=== PATIENT | female | born 1980 | race Caucasian/White ===

== ENCOUNTER → 2016-08-26 | Outpatient (CLI) | payer BC ==
[~2016-08-26] MED LIST: ACET1TAB43 PO; BUTA1TAB9; CATHETER FLUSH 10 ML SYR IV PRN; CEPH-507 PO; CRUT1EAC7 MC; CYCL10TA9; HYDR-3812 PO; IBP800T PO; IOHEXOL 350 MG/ML 100 ML (OMNIPAQUE 350) VIAL IV ONE; LEG1EACH50 MC; NS 100 ML (IVPB) BAG IV ONE; ONDAN4ODT PO; PREN1TAB39 PO; TPR25T PO; TRAM50TA2 PO
--- OUTSIDE RECORDS SUMMARY | 2016-08-26 13:15 | XMS REPORT | Continuity of Care Document ---
Author Author [facility] Organization [facility] Address Unknown Phone Unavailable Allergies Active Description Code Type Severity Reaction Onset Reported/Identified Relationship to Patient Clinical Status Yes NKANo Known Allergies NKA Miscellaneous Allergy Unknown N/ A 02/06/2006 Medications Problems Date Dx Coded Attending Type Code Diagnosis Diagnosed By 07/29/2011 Ot 784.0 12/20/2013 ZI LYONS, YOBANI Erazo Ot 891.0 12/20/2013 ZI LYONS, YOBANI Erazo Ot E920.8 06/22/2015 CURLY LYONS, GLORIA White Ot R59.1 06/23/2015 CURLY LYONS, GLORIA White Ot R59.1 06/23/2015 CURLY LYONS, GLORIA White Ot R59.1 06/23/2015 CURLY LYONS, GLORIA White Ot R59.1 06/25/2015 CURLY LYONS, GLORIA White Ot R59.1 07/13/2015 CURLY LYONS, GLORIA White Ot R59.1 09/12/2015 CURLY LYONS, GLORIA White Ot R59.1 09/12/2015 JOSE GARCIA Ot S81.012A LACERATION WITHOUT FOREIGN BODY, LEFT KN 09/12/2015 JOSE GARCIA Ot W22.8XXA STRIKING AGAINST OR STRUCK BY OTHER OBJE 09/12/2015 JOSE GARCIA Ot Y92.[address] IN [facility] NON-INSTITUT ( PRIVATE 09/12/2015 JOSE GARCIA Ot Y99.8 OTHER EXTERNAL CAUSE STATUS 09/16/2015 CURLY LYONS, GLORIA White Ot R59.1 09/16/2015 CURLY LYONS, GLORIA White Ot R59.1 09/25/2015 ODALYS URIBE MD Ot S81.012D LACERATION WITHOUT FOREIGN BODY, LEFT KN 09/25/2015 CURLY LYONS, GLORIA White Ot R59.1 09/25/2015 CURLY LYONS, GLORIA White Ot R59.1 09/25/2015 RONY LYONS, ODALYS Hinson Ot S81.012D 10/18/2015 ZI LYONS, YOBANI Erazo Ot F17.210 NICOTINE DEPENDENCE, CIGARETTES, UNCOMPL 10/18/2015 ZI LYONS, YOBANI Erazo Ot G43.909 MIGRAINE, UNSP, NOT INTRACTABLE, WITHOUT 10/18/2015 CURLY LYONS, GLORIA White Ot R59.1 10/20/2015 YOBANI PINON MD Ot F17.210 10/20/2015 YOBANI PINON MD Ot G43.909 10/24/2015 CURLY LYONS, GLORIA White Ot R59.1 GENERALIZED ENLARGED LYMPH NODES 10/24/2015 CURLY LYONS, GLORIA White Ot R59.1 GENERALIZED ENLARGED LYMPH NODES 11/11/2015 CURLY LYONS, GLORIA White Ot R59.1 GENERALIZED ENLARGED LYMPH NODES Procedures Results Encounters ACCT No. Visit Date/Time Discharge Status Pt. Type Provider Facility Loc./Unit Complaint [id number] 10/18/2015 03:46:00 2015 04:54:00 DIS Emergency YOBANI PINON MD [facility] ER [id number] 09/25/2015 10:25:00 2015 10:47:00 DIS Emergency RONY LYONS, ODALYS Hinson [facility] ER [id number] 09/12/2015 13:43:00 2015 15:39:00 DIS Emergency JOSE GARCIA [facility] ER [id number] 06/08/2015 16:20:00 2014 23:59:59 CLS Outpatient GLORIA RAWLS MD [facility] RAD [id number] 12/20/2013 20:01:00 2013 20:14:00 DIS Emergency YOBANI PINON MD [facility] ER [id number] 07/29/2011 20:39:00 Document Registration
[2016-08-26 14:00] LABS: BASOPHILS % (AUTO) 1 % (0-10); EOSINOPHILS # (AUTO) 0.2 10^3/uL (0.0-0.3); EOSINOPHILS % (AUTO) 4 % (0-10); LYMPHOCYTES # (AUTO) 1.3 X 10^3 (1.0-4.0); LYMPHOCYTES % (AUTO) 25 % (12-44); MEAN CORPUSCULAR HEMOGLOBIN 33 PG (25-34); MEAN CORPUSCULAR HGB CONC 35 G/DL (32-36); MEAN CORPUSCULAR VOLUME 92 FL (80-99); MEAN PLATELET VOLUME 8.3 FL (7.4-10.4); MONOCYTES # (AUTO) 0.6 X 10^3 (0.0-1.0); MONOCYTES % (AUTO) 12 % (0-12); NEUTROPHILS % (AUTO) 59 % (42-75); PLATELET COUNT 290 10^3/uL (130-400); RED BLOOD COUNT 4.15 10^6/uL (4.35-5.85); RED CELL DISTRIBUTION WIDTH 12.3 % (10.0-14.5); WHITE BLOOD COUNT 5.1 10^3/uL (4.3-11.0)
--- NOTE | 2016-08-26 14:06 | Diagnostic Imaging Report ---
INDICATION: Cough, sinus drainage. FINDINGS: The lungs are well aerated and clear. The heart is not enlarged. There is no hilar adenopathy. No pulmonary edema. No pneumothorax or pleural effusions. No bony abnormalities. IMPRESSION: Normal PA and lateral chest. Report was stat faxed to office of ALEKSANDAR Jiménez, @ 2:01 PM/pawan. Dictated by: Dictated on workstation # [id number]
--- NOTE | 2016-08-26 14:51 | Diagnostic Imaging Report ---
CLINICAL INDICATION: Failure of antibiotics. Patient has sinus pressure and congestion since June 2016. EXAM: Axial maxillofacial CT scan performed without and with 80 cc of nonionic IV contrast with coronal reformations. COMPARISON: None. FINDINGS: There is no abnormal IV contrast enhancement seen on this exam. PARANASAL SINUSES: All of the paranasal sinuses findings have progressed compared to the prior study. FRONTAL: Unremarkable. ETHMOID: Mild mucosal thickening. MAXILLARY: There is a small air-fluid level in the right maxillary sinus and mild peripheral mucosal thickening. The left maxillary sinus is clear. SPHENOID: There is mild mucosal thickening involving the anterior aspect of the sphenoid sinus. OTHER PARANASAL SINUS FINDINGS: None. NASAL SEPTUM: Relatively midline. No significant bony spurs. VISUALIZED TEMPORAL BONE STRUCTURES: Unremarkable. BONY STRUCTURES: Unremarkable. EXTRACRANIAL SOFT TISSUE/ ORBITS: Unremarkable. IMPRESSION: 1: There is mild paranasal sinus disease involving the ethmoid sinus, right maxillary sinus, and sphenoid sinus including a small air-fluid level in the right maxillary sinus. 2: There is no abnormal IV contrast enhancement seen on this exam. Dictated by: Dictated on workstation # [id number]
[2016-08-29 13:05] LABS: MYCOPLASMA IGM IFA ANTIBODY <1:10 (<1:10)
== END ==
LOC: RAD 13:11
PROVIDERS: ATTEND Nurse Practitioner Family
DX: J32.2 Chronic ethmoidal sinusitis (principal); J32.0 Chronic maxillary sinusitis; J32.3 Chronic sphenoidal sinusitis
CPT/HCPCS: 36415; 70488; 71020; 85025; 86308; 86738

== ENCOUNTER → 2018-05-08 | Outpatient (CLI) | payer BC, OTHER ==
[~2018-05-08] MED LIST changes: +ACHD5005 PO; -CATHETER FLUSH 10 ML SYR IV PRN; +DOCU-143 PO; -HYDR-3812 PO; -IOHEXOL 350 MG/ML 100 ML (OMNIPAQUE 350) VIAL IV ONE; -NS 100 ML (IVPB) BAG IV ONE; +RANI150T46 PO
--- NOTE | 2018-05-08 09:43 | Diagnostic Imaging Report ---
PROCEDURE: US Gallbladder. TECHNIQUE: Multiple real-time grayscale images were obtained over the right upper quadrant in various projections. INDICATION: Epigastric pain FINDINGS: The liver appeared normal. The biliary ducts nondilated. The gallbladder normal. The pancreas unremarkable. The unobstructed right kidney is normal in size, cortical thickness and echotexture. Portal venous flow in a normal hepatopedal direction. IMPRESSION: This is a normal right upper quadrant ultrasound Dictated by: Dictated on workstation # [id number]
== END ==
LOC: RAD 08:10
PROVIDERS: ATTEND Surgery
DX: R10.11 Right upper quadrant pain (principal); R11.2 Nausea with vomiting, unspecified
CPT/HCPCS: 76705

== ENCOUNTER → 2018-05-09 | Outpatient (CLI) | payer BC ==
[~2018-05-09] MED LIST changes: +CATHETER FLUSH 10 ML SYR IV PRN
--- NOTE | 2018-05-09 12:27 | Diagnostic Imaging Report ---
Indication: Nausea and vomiting. Patient was administered 5.5 mCi technetium 99M Choletec and imaging over the abdomen was performed. At 45 minutes patient ingested 8 ounces of Ensure and gallbladder ejection fraction was calculated. There is homogeneous uptake of activity by the liver. Prompt excretion of activity into the gallbladder and common duct is noted. There is normal passage of activity into the small bowel. Gallbladder ejection fraction is slightly low at 27%. Normal values are 33% or greater. Impression: 1. No evidence of cystic duct or common bile duct obstruction. 2. Slightly low gallbladder ejection fraction of 27%. Dictated by: Dictated on workstation # [id number]
== END ==
LOC: RAD 09:34
PROVIDERS: ATTEND Surgery
DX: R11.2 Nausea with vomiting, unspecified (principal)
CPT/HCPCS: 78227

== ENCOUNTER 2018-05-15 05:37 | Outpatient (CLI) | payer BC ==
[~2018-05-15] VITALS: Ht 162.6 cm; Wt 81.6 kg
[~2018-05-15 05:37] MED LIST changes: -CATHETER FLUSH 10 ML SYR IV PRN; -DOCU-143 PO; -RANI150T46 PO
[2018-05-15] MEDS ORDERED: RANI150T46 PO (12:26)
[2018-05-17] MEDS ORDERED: ACHD5005 PO (08:46)
[2018-05-17] MEDS ORDERED: DOCU-143 PO (08:46)
== END 2018-05-15 12:33 | disposition home or self-care (01) ==
LOC: PREOP 05:37
PROVIDERS: ATTEND Surgery
DX: Z01.818 Encounter for other preprocedural examination (principal)

== ENCOUNTER 2018-05-17 06:12 | Day surgery (SDC) | payer BC, OTHER ==
[~2018-05-17] VITALS: Ht 162.6 cm; Wt 81.6 kg
[~2018-05-17 06:12] MED LIST changes: +RANI150T46 PO
[2018-05-17 06:30] VITALS: BP 115/75
--- OUTSIDE RECORDS SUMMARY | 2018-05-17 06:41 | XMS REPORT | Continuity of Care Document ---
Author Author [facility] Organization [facility] Address Unknown Phone Unavailable Allergies Active Description Code Type Severity Reaction Onset Reported/Identified Relationship to Patient Clinical Status Yes NKANo Known Allergies NKA Miscellaneous Allergy Unknown N/A 02/06/2006 Medications There is no data. Problems Date Dx Coded Attending Type Code Diagnosis Diagnosed By 07/29/2011 Ot 784.0 12/20/2013 ZI LYONS, YOBANI Erazo Ot 891.0 OPEN WND KNEE/LEG/ANKLE 12/20/2013 YOBANI PINON MD Ot E920.8 ACC-CUTTING INSTRUM NEC 06/22/2015 CURLY LYONS, GLORIA White Ot R59.1 [...] JOSE GARCIA Ot Y92.[address] IN UNSP NON-INSTITUT (PRIVATE 09/12/2015 JOSE GARCIA Ot Y99.8 OTHER EXTERNAL CAUSE STATUS 09/16/2015 CURLY LYONS, GLORIA White Ot R59.1 09/16/2015 CURLY LYONS, GLORIA White Ot R59.1 09/25/2015 RONY LYONS, ODALYS Hinson Ot S81.012D LACERATION WITHOUT FOREIGN BODY, LEFT KN 09/25/2015 CURLY LYONS, GLORIA M Ot R59.1 09/25/2015 CURLY LYONS, GLORIA M Ot R59.1 09/25/2015 RONY LYONS, ODALYS Hinson Ot S81.012D 10/18/2015 ZI LYONS, YOBANI Erazo Ot F17.210 NICOTINE DEPENDENCE, CIGARETTES, UNCOMPL 10/18/2015 ZI LYONS, YOBANI Erazo Ot G43.909 MIGRAINE, UNSP, NOT INTRACTABLE, WITHOUT 10/18/2015 CURLY LYONS, GLORIA White Ot R59.1 10/20/2015 ZI LYONS, YOBANI Erazo Ot F17.210 10/20/2015 ZI LYONS, YOBANI Erazo Ot G43.909 10/24/2015 CURLY LYONS, GLORIA White Ot R59.1 GENERALIZED ENLARGED LYMPH NODES 10/24/2015 CURLY LYONS, GLORIA White Ot R59.1 GENERALIZED ENLARGED LYMPH NODES 11/11/2015 CURLY LYONS, GLORIA White Ot R59.1 GENERALIZED ENLARGED LYMPH NODES 08/26/2016 CURLY LYONS, GLORIA White Ot R59.1 GENERALIZED ENLARGED LYMPH NODES 08/29/2016 SHAKIR CRISTINARICIA L BUTTER MELTER Ot J32.0 CHRONIC MAXILLARY SINUSITIS 08/29/2016 CRISTINA, DELLA L BUTTER MELTER Ot J32.2 CHRONIC ETHMOIDAL SINUSITIS 08/29/2016 CRISTINA, DELLA L BUTTER MELTER Ot 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 08/29/2016 CRISTINA, DELLA L BUTTER MELTER Ot J32.0 CHRONIC MAXILLARY SINUSITIS 08/29/2016 CRISTINA, DELLA L BUTTER MELTER Ot J32.2 CHRONIC ETHMOIDAL SINUSITIS 08/29/2016 CRISTINA, DELLA L BUTTER MELTER Ot 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 09/22/2016 CRISTINA, DELLA L BUTTER MELTER Ot J32.0 CHRONIC MAXILLARY SINUSITIS 09/22/2016 CRISTINA, DELLA L BUTTER MELTER Ot J32.2 CHRONIC ETHMOIDAL SINUSITIS 09/22/2016 CRISTINA, DELLA L BUTTER MELTER Ot 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 09/28/2016 CRISTINA, DELLA L BUTTER MELTER Ot J32.0 CHRONIC MAXILLARY SINUSITIS 09/28/2016 SHAKIR CRISTINARICIA L BUTTER MELTER Ot J32.2 CHRONIC ETHMOIDAL SINUSITIS 09/28/2016 CRISTINA, DELLA L BUTTER MELTER Ot 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 11/24/2016 CRISTINA, DELLA L BUTTER MELTER Ot J32.0 CHRONIC MAXILLARY SINUSITIS 11/24/2016 CRISTINA, DELLA L BUTTER MELTER Ot J32.2 CHRONIC ETHMOIDAL SINUSITIS 11/24/2016 CRISTINA, DELLA L BUTTER MELTER Ot 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 12/07/2016 CURLY LYONS, GLORIA White Ot R59.1 GENERALIZED ENLARGED LYMPH NODES 12/14/2016 CURLY LYONS, GLORIA White Ot R59.1 GENERALIZED ENLARGED LYMPH NODES 12/14/2016 CRISTINA DELLA L BUTTER MELTER Ot J32.0 CHRONIC MAXILLARY SINUSITIS 12/14/2016 CRISTINA, DELLA L BUTTER MELTER Ot J32.2 CHRONIC ETHMOIDAL SINUSITIS 12/14/2016 CRISTINA, DELLA L BUTTER MELTER Ot 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 12/14/2016 CURLY LYONS, GLORIA White Ot R59.1 GENERALIZED ENLARGED LYMPH NODES 12/14/2016 CRISTINA DELLA L BUTTER MELTER Ot J32.0 CHRONIC MAXILLARY SINUSITIS 12/14/2016 CRISTINA, DELLA L BUTTER MELTER Ot J32.2 CHRONIC ETHMOIDAL SINUSITIS 12/14/2016 CRISTINA, DELLA L BUTTER MELTER Ot 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 12/14/2016 CURLY LYONS, GLORIA White Ot R59.1 GENERALIZED ENLARGED LYMPH NODES 12/14/2016 CRISTINA DELLA L BUTTER MELTER Ot J32.0 CHRONIC MAXILLARY SINUSITIS 12/14/2016 CRISTINA DELLA L BUTTER MELTER Ot J32.2 CHRONIC ETHMOIDAL SINUSITIS 12/14/2016 CRISTINA, DELLA L BUTTER MELTER Ot 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 05/07/2018 CURLY LYONS, GLORIA White Ot R59.1 GENERALIZED ENLARGED LYMPH NODES 05/07/2018 CRISTINA, DELLA L BUTTER MELTER Ot J32.0 CHRONIC MAXILLARY SINUSITIS 05/07/2018 CRISTINA, DELLA L BUTTER MELTER Ot J32.2 CHRONIC ETHMOIDAL SINUSITIS 05/07/2018 DELLA CRISTINA [facility] Ot 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 Results Test Result Range Complete blood count (CBC) with automated white blood cell (WBC) differential - 08/26/16 13:52 Blood leukocytes automated count (number/volume) 5.1 10*3/uL 4.3-11.0 Blood erythrocytes automated count (number/volume) 4.15 10*6/uL 4.35-5.85 Venous blood hemoglobin measurement (mass/volume) 13.5 g/dL 11.5-16.0 Blood hematocrit (volume fraction) 38 % 35-52 Automated erythrocyte mean corpuscular volume 92 [foz_us] 80-99 Automated erythrocyte mean corpuscular hemoglobin (mass per erythrocyte) 33 pg 25-34 Automated erythrocyte mean corpuscular hemoglobin concentration measurement ( mass/volume) 35 g/dL 32-36 Automated erythrocyte distribution width ratio 12.3 % 10.0-14.5 Automated blood platelet count (count/volume) 290 10*3/uL 130-400 Automated blood platelet mean volume measurement 8.3 [foz_us] 7.4-10.4 Automated blood neutrophils/100 leukocytes 59 % 42-75 Automated blood lymphocytes/100 leukocytes 25 % 12-44 Blood monocytes/100 leukocytes 12 % 0-12 Automated blood eosinophils/100 leukocytes 4 % 0-10 Automated blood basophils/100 leukocytes 1 % 0-10 Blood neutrophils automated count (number/volume) 3.0 10*3 1.8-7.8 Blood lymphocytes automated count (number/volume) 1.3 10*3 1.0-4.0 Blood monocytes automated count (number/volume) 0.6 10*3 0.0-1.0 Automated eosinophil count 0.2 10*3/uL 0.0-0.3 Automated blood basophil count (count/volume) 0.0 10*3/uL 0.0-0.1 Serum heterophile antibody titer - 08/26/16 13:52 Serum heterophile antibody titer NEGATIVE NEGATIVE Serum Mycoplasma pneumoniae antibody detection - 08/26/16 13:52 Pleural fluid Mycoplasma pneumoniae IgG antibody titer by immunofluorescence <1:32 Mycoplasma pneumoniae IgM ab [presence] in serum by immunofluorescence <1:10 <1:10 Myocardium ab pattern [interpretation] in serum See Below See Below Encounters ACCT No. Visit Date/Time Discharge Status Pt. Type Provider Facility Loc./Unit Complaint [id number] 05/15/2018 05:37:00 05/15/2018 12:33:00 DIS Outpatient YULIANA WHITFIELD DO [facility] PREOP BILIARY DYSKINESIA [id number] 05/09/2018 09:34:00 05/09/2018 23:59:59 CLS Outpatient WHITFIELD YULIANA YI [facility] RAD NAUSEA,VOMITING [id number] 05/08/2018 08:10:00 05/08/2018 23:59:59 CLS Outpatient YULIANA WHITFIELD DO [facility] RAD NAUSEA,VOMITING [id number] 08/26/2016 13:11:00 08/26/2016 23:59:59 CLS Outpatient DELLA CRISTINA [facility] RAD CHRONIC SINUSITIS, FAILURE ON ANTIOBIOTICS [id number] 10/18/2015 03:46:00 10/18/2015 04:54:00 DIS Emergency YOBANI PINON MD [facility] ER MIGRANE [id number] 09/25/2015 10:25:00 09/25/2015 10:47:00 DIS Emergency ODALYS URIBE MD [facility] ER SUTURE REMOVAL [id number] 09/12/2015 13:43:00 09/12/2015 15:39:00 DIS Emergency JOSE GARCIA [facility] ER L KNEE LAC [id number] 06/08/2015 16:20:00 06/08/2015 23:59:59 CLS Outpatient GLORIA RAWLS MD [facility] RAD CERVICAL RT LYPHADENOPAHTY [id number] 12/20/2013 20:01:00 12/20/2013 20:14:00 DIS Emergency ZI LYONS, YOBANI Erazo [facility] ER L LEG LAC [id number] 05/17/2018 08:00:00 PEN Preadmit YULIANA WHITFIELD DO [facility] SDC BILIARY DYSKINESIA [id number] 07/29/2011 20:39:00 Document Registration
--- OUTSIDE RECORDS SUMMARY | 2018-05-17 06:41 | XMS REPORT ---
Author Author GERTRUDE JARQUIN [facility] Address [address] [place] [address] Care Team Providers Care Registered Mail Clerk Name Role Phone GERTRUDE JARQUIN Unavailable PROBLEMS Type Condition ICD9-CM Code [id number] Code Onset Dates Condition Status SNOMED Code Problem Seasonal allergic rhinitis, unspecified allergic rhinitis trigger J30.2 Active [id number] ALLERGIES No Known Allergies SOCIAL HISTORY Never Assessed PLAN OF CARE Activity Details Follow Up prn Reason: VITAL SIGNS Height 64 in 2016-08-20 Weight 181.2 lbs 2016-08-20 Temperature 98.2 degrees Fahrenheit 2016-08-20 Heart Rate 100 bpm 2016-08-20 Respiratory Rate 20 2016-08-20 BMI 31.10 kg/m2 2016-08-20 Blood pressure systolic 136 mmHg 2016-08-20 Blood pressure diastolic 82 mmHg 2016-08-20 MEDICATIONS Medication Instructions Dosage Frequency Start Date End Date Duration Status Zyrtec Allergy 10 MG Orally Once a day 1 tablet 24h Aug, Sep, 30 day(s) Active Diflucan 100 MG Orally Once a day 1 tablet 24h Aug, Aug, 10 day(s) Active RESULTS No Results PROCEDURES No Known procedures IMMUNIZATIONS No Known Immunizations
[2018-05-17] MEDS ORDERED: ceFAZolin 2 GM IV Premixed 50 ML IV ONE (06:45)
[2018-05-17] MEDS: LACTATED RINGERS 1,000 ML IV PRN ×2 (06:45→08:15)
[2018-05-17 06:49] LABS: BASOPHILS % (AUTO) 0 % (0-10); EOSINOPHILS # (AUTO) 0.1 10^3/uL (0.0-0.3); EOSINOPHILS % (AUTO) 1 % (0-10); HEMATOCRIT 39 % (35-52); HEMOGLOBIN 13.7 G/DL (11.5-16.0); LYMPHOCYTES # (AUTO) 2.1 X 10^3 (1.0-4.0); LYMPHOCYTES % (AUTO) 29 % (12-44); MEAN CORPUSCULAR HEMOGLOBIN 32 PG (25-34); MEAN CORPUSCULAR HGB CONC 35 G/DL (32-36); MEAN CORPUSCULAR VOLUME 92 FL (80-99); MEAN PLATELET VOLUME 8.3 FL (7.4-10.4); MONOCYTES # (AUTO) 0.7 X 10^3 (0.0-1.0); MONOCYTES % (AUTO) 10 % (0-12); NEUTROPHILS # (AUTO) 4.1 X 10^3 (1.8-7.8); NEUTROPHILS % (AUTO) 59 % (42-75); PLATELET COUNT 301 10^3/uL (130-400); RED BLOOD COUNT 4.24 10^6/uL (4.35-5.85); RED CELL DISTRIBUTION WIDTH 12.4 % (10.0-14.5)
[2018-05-17] MEDS ORDERED: MIDAZOLAM 2 MG/2 ML (VERSED) VIAL ONE (06:52)
[2018-05-17] MEDS ORDERED: MIDAZOLAM 2 MG/2 ML (VERSED) VIAL IV ONE (07:00)
[2018-05-17] MEDS ORDERED: fentaNYL INJECTION 100 MCG/2 ML AMP ONE (07:05)
[2018-05-17] MEDS ORDERED: ONDANSETRON 4 MG/2 ML (SDV) Z0FRAN ONE (07:07)
[2018-05-17] MEDS ORDERED: LIDOCAINE PF 2% 5 ML (XYLOCAINE) VIAL ONE (07:07)
[2018-05-17] MEDS ORDERED: DEXAMETHASONE 10 MG/ML (DECADRON) 1 ML VIAL ONE (07:07)
[2018-05-17] MEDS ORDERED: ROCURONIUM 10 MG/ML 5 ML SYRINGE IV ONE (07:07)
[2018-05-17] MEDS ORDERED: proPOfol 200 MG/20 ML (DIPRIVAN) VIAL IV ONE (07:07)
[2018-05-17] MEDS ORDERED: SEVOFLURANE (ULTANE) 15 ML INHAL SOLN ONE ×3 (07:07→08:40)
[2018-05-17] MEDS ORDERED: LIDOCAINE 1% INJ 20 ML 20 ML VIAL ONE (07:14)
[2018-05-17] MEDS ORDERED: BUPIVACAINE 0.5% 30 ML (SENSORCAINE) VIAL ONE (07:14)
[2018-05-17] MEDS ORDERED: CATHETER FLUSH 10 ML SYR IV PRN (07:15)
--- NOTE | 2018-05-17 07:52 | Progress Note-Pre Operative ---
Pre-Operative Progress Note H&P Reviewed The H&P was reviewed, patient examined and no changes noted. Date Seen by Provider: May 17, 2018 Time Seen by Provider: 07:30 Date H&P Reviewed: May 17, 2018 Time H&P Reviewed: 07:30 Pre-Operative Diagnosis: epigastric abdominal pain, biliary dyskinesia YULIANA WHITFIELD DO May 17, 2018 07:52
[2018-05-17] MEDS ORDERED: GLYCOPYRROLATE 0.2 MG/ML (ROBINUL) 2 ML VIAL ONE (08:28)
[2018-05-17] MEDS ORDERED: NEOSTIGMINE 1 MG/ML 5 ML SYRINGE ONE (08:40)
[2018-05-17] MEDS ORDERED: KETOROLAC 30 MG/ML VIAL ONE (08:45)
--- NOTE | 2018-05-17 08:45 | Progress Note-Post Operative ---
Post-Operative Progess Note Surgeon (s)/Disbursement Clerk (s) Surgeon YULIANA WHITFIELD DO Disbursement Clerk: Dr. Arteaga Pre-Operative Diagnosis epigastric abdominal pain, biliary dyskinesia Post-Operative Diagnosis same Procedure & Operative Findings Date of Procedure 05/17/18 Procedure Performed/Findings lap brunilda c ioc Anesthesia Type gen Estimated Blood Loss Estimated blood loss (mL): min Specimens/Packing Specimens Removed gallbladder YULIANA WHITFIELD DO May 17, 2018 08:45
[2018-05-17] MEDS ORDERED: ACHD5005 PO (08:46)
[2018-05-17] MEDS ORDERED: DOCU-143 PO (08:46)
--- NOTE | 2018-05-17 08:47 | Discharge Inst-Simple/Standard ---
Discharge Inst-Standard Discharge Medications New, Converted or Re-Newed RX: RX on Chart Patient Instructions/Follow Up Plan of Care/Instructions/FU: 2 weeks Holden Activity as Tolerated: No Discharge Diet: Regular Diet Other Inst to Patient Follow up Appt: Make appointment for 2 weeks. Instructions: No lifting greater than 10 pounds. No strenuous activity. May shower in 24 hours, no tub bath or soaking. Use incentive spirometer at home as directed. No Smoking Skin/Wound Care: You have special glue over incisions it will fall off on its own. Symptoms to Report: Appetite Changes, Extremity Discoloration, Numbness/Tingling, Swelling Increased , Bleeding Excessive, Eyesight Changes, Pain Increased, Urine Color Change, Constipation(Persistent), Fever over 101 degree F, Pain/Pressure in chest, Urinating Difficulty, Cough Up/Vomit Blood, Heart Beat Irreg/Pounding, Pain/ Pressure in jaw, Vaginal Bleeding Increase, Cramps in feet or legs, Lightheadedness, Pain/Pressure in shoulder, Diarrhea(Persistent), Memory Changes Suddenly, Questions/Concerns, Weight gain consecutive days, Dizziness/ Fainting, Nausea/Vomiting, Shortness of Breath, Weight gain over 2 pounds. If eyes or skin turn yellow notify physician. If questions or concerns contact your physician Or seek help at emergency department. YULIANA WHITFIELD DO May 17, 2018 08:47
[2018-05-17] MEDS ORDERED: HYDROmorphone 2 MG/ML VIAL (DILAUDID) ONE (09:16)
[2018-05-17] MEDS ORDERED: HYDROmorphone 2 MG/ML VIAL (DILAUDID) IV ONE (09:30)
[2018-05-17] MEDS ORDERED: ONDANSETRON 4 MG/2 ML (SDV) Z0FRAN IVP PRN (09:30)
[2018-05-17 09:55] VITALS: BP 104/70
[2018-05-17] MEDS ORDERED: HYDROcodone/APAP 5 MG/325 MG (LORTAB) TAB ONE (09:58)
[2018-05-17] MEDS: HYDROcodone/APAP 5 MG/325 MG (LORTAB) TAB PO PRN ×2 (10:08→10:45)
[2018-05-17 10:25] VITALS: BP 110/77
[2018-05-17 10:55] VITALS: BP 103/70
[2018-05-17 11:50] VITALS: BP 103/70
--- NOTE | 2018-05-17 12:07 | Anesthesia-General Post-Op ---
General Patient Condition Mental Status/LOC: Same as Preop Cardiovascular: Satisfactory Nausea/Vomiting: Absent Respiratory: Satisfactory Pain: Controlled Complications: Absent Post Op Complications Complications None Follow Up Care/Instructions Patient Instructions None needed. Anesthesia/Patient Condition Patient Condition Patient is doing well, no complaints, stable vital signs, no apparent adverse anesthesia problems. No complications reported per nursing. MIRIAM CROWDER CRNA May 17, 2018 12:07
--- NOTE | 2018-05-17 12:14 | OPERATIVE REPORT ---
DATE OF SERVICE: 05/17/2018 PREOPERATIVE DIAGNOSIS: Epigastric abdominal pain, biliary dyskinesia. POSTOPERATIVE DIAGNOSES: Epigastric abdominal pain, biliary dyskinesia. PROCEDURE: Laparoscopic cholecystectomy with intraoperative cholangiogram. SURGEON: Yuliana Hatch DO MANUFACTURER AGENT: Dr. Arteaga, assisted in retraction, dissection and closure. ANESTHESIA: General. ESTIMATED BLOOD LOSS: Minimal. COMPLICATIONS: None. INDICATIONS: The patient is a 37-year-old female who has been having epigastric abdominal pain. She had workup consistent with biliary dyskinesia. She understands risks and benefits of procedure and wished to proceed with procedure. Consent was signed in the chart. DESCRIPTION OF PROCEDURE: The patient was taken to the operating suite. She was prepped and draped in sterile fashion. Surgical pause was performed. Jessie technique was used to enter just above the umbilicus. Once the abdomen was entered, a 0 Vicryl was placed in a snnuvy-ak-yxmet fashion for closure at the end of the case. A balloon trocar was inserted in the abdomen and pneumoperitoneum was achieved. Under direct visualization of the laparoscope, a 5 mm trocar was then placed in the subxiphoid region and two 5 mm trocars were placed in the right upper quadrant. Gallbladder was grasped, elevated. There were some adhesions up to the gallbladder, which were then taken down. The cystic duct and cystic artery were then dissected around. Clips were placed on the proximal and distal portion of the cystic artery and clips. A clip was placed on the distal portion of the cystic duct. The cystic duct was then partially transected. Arrow catheter was inserted into the duct and cholangiogram was then performed. There were no filling defects. Contrast made its way into the duodenum without difficulty. The catheter was removed. The clips were placed on the proximal portion of the cystic duct. The cystic duct and cystic artery were then completely transected. Hook cautery was used to dissect the gallbladder from the gallbladder fossa achieving hemostasis. It was placed in an Endobag and removed through 12 mm trocar site. The abdomen was then inspected. There was a small adhesion up to the umbilicus, which was taken down with cautery and scissors. No other pathology noted. The abdomen was then desufflated, the trocars were removed. The 0 Vicryl that was placed at the beginning of the case was then tied closing 12 mm fascial defect. The trocars were removed. The skin was then closed using 4-0 Monocryl in a subcuticular fashion. The abdomen was then washed and dried and Skin Affix was placed over the incisions. The patient tolerated procedure well without complications. She was taken to recovery room in stable condition. Job ID: [id number] DocumentID: [id number] Dictated Date: 05/17/2018 08:50:38 Dentist Date: 05/17/2018 12:14:27 Dictated By: YULIANA HATCH DO
--- NOTE | 2018-05-17 14:21 | Diagnostic Imaging Report ---
Fluoroscopy. Indication: Laparoscopic cholecystectomy. Fluoroscopic assistance was provided for Dr. Hatch during his laparoscopic cholecystectomy procedure. 5 seconds of fluoroscopy time was utilized. 25 spot films of the right upper quadrant were received from the OR. There has been opacification of the common bile duct via cystic duct catheter. The common bile duct does not seem to be dilated and there is no defect within the duct to suggest a calculus. There is extension of the contrast into the small bowel. Impression: Fluoroscopic assistance was provided for Dr. Hatch. Dictated by: Dictated on workstation # [id number]
== END 2018-05-17 12:10 | disposition home or self-care (01) ==
LOC: SDC 06:12
PROVIDERS: ATTEND Surgery
DX: K81.1 Chronic cholecystitis (principal); K82.8 Other specified diseases of gallbladder; K21.9 Gastro-esophageal reflux disease without esophagitis; Z87.891 Personal history of nicotine dependence; Z11.2 Encounter for screening for other bacterial diseases
CPT/HCPCS: 36415; 84703; 85025; 87081; 88304

== ENCOUNTER 2019-01-19 05:19 | Day surgery (SDC) | payer OTHER ==
[~2019-01-19] VITALS: Ht 162.6 cm; Wt 90.0 kg
[2019-01-19] VITALS (9 sets, daily range): BP systolic 101–114; BP diastolic 65–74
[~2019-01-19 05:19] MED LIST changes: +DOCU-143 PO
--- OUTSIDE RECORDS SUMMARY | 2019-01-19 05:25 | XMS REPORT | Continuity of Care Document ---
Author Organization Unknown Address Unknown Allergies Active Description Code Type Severity Reaction Onset Reported/Identified Relationship to Patient Clinical Status Yes NKANo Known Allergies NKA Miscellaneous Allergy Unknown N/A 02/06/2006 Medications There is no data. Problems Date Dx Coded Attending Type Code Diagnosis Diagnosed By 07/29/2011 Ot 784.0 12/20/2013 ZI LYONS, YOBANI Erazo Ot 891.0 OPEN WND KNEE/LEG/ANKLE 12/20/2013 ZI LYONS, YOBANI Erazo Ot E920.8 ACC-CUTTING INSTRUM NEC 06/22/2015 CURLY [...] White Ot R59.1 09/25/2015 RONY LYONS, ODALYS Joya Ot S81.012D 10/18/2015 ZI LYONS, YOBANI Erazo [...] Ot R59.1 GENERALIZED ENLARGED LYMPH NODES 08/29/2016 DEA CRISTINAIA L BACKSHOE PERSON Ot J32.0 CHRONIC MAXILLARY SINUSITIS 08/29/2016 SHAKIR CRISTINARICIA L BACKSHOE PERSON Ot J32.2 CHRONIC ETHMOIDAL SINUSITIS 08/29/2016 SHAKIR CRISTINARICIA L BACKSHOE PERSON Ot 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 08/29/2016 SHAKIR CRISTINARICIA L BACKSHOE PERSON Ot J32.0 CHRONIC MAXILLARY SINUSITIS 08/29/2016 SHAKIR CRISTINARICIA L BACKSHOE PERSON Ot J32.2 CHRONIC ETHMOIDAL SINUSITIS 08/29/2016 SHAKIR CRISTINARICIA L BACKSHOE PERSON Ot 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 09/22/2016 CRISTINA, DELLA L BACKSHOE PERSON Ot J32.0 CHRONIC MAXILLARY SINUSITIS 09/22/2016 CRISTINA, DELLA L BACKSHOE PERSON Ot J32.2 CHRONIC ETHMOIDAL SINUSITIS 09/22/2016 DELLA CRISTINA L BACKSHOE PERSON Ot 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 09/28/2016 SHAKIR CRISTINARICIA L BACKSHOE PERSON Ot J32.0 CHRONIC MAXILLARY SINUSITIS 09/28/2016 DELLA CRISTINA L BACKSHOE PERSON Ot J32.2 CHRONIC ETHMOIDAL SINUSITIS 09/28/2016 CRISTINA DELLA L BACKSHOE PERSON Ot 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 11/24/2016 CRISTINA, DELLA L BACKSHOE PERSON Ot J32.0 CHRONIC MAXILLARY SINUSITIS 11/24/2016 CRISTINA, DELLA L BACKSHOE PERSON Ot J32.2 CHRONIC ETHMOIDAL SINUSITIS 11/24/2016 CRISTINA, DELLA L BACKSHOE PERSON Ot 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 12/07/2016 CURLY LYONS, GLORIA White Ot R59.1 GENERALIZED ENLARGED LYMPH NODES 12/14/2016 CURLY LYONS, GLORIA White Ot R59.1 GENERALIZED ENLARGED LYMPH NODES 12/14/2016 CRISTINA, DELLA L BACKSHOE PERSON Ot J32.0 CHRONIC MAXILLARY SINUSITIS 12/14/2016 CRISTINA, DELLA L BACKSHOE PERSON Ot J32.2 CHRONIC ETHMOIDAL SINUSITIS 12/14/2016 CRISTINA, DELLA L BACKSHOE PERSON Ot 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 12/14/2016 CURLY LYONS, GLORIA White Ot R59.1 GENERALIZED ENLARGED LYMPH NODES 12/14/2016 CRISTINA DELLA L BACKSHOE PERSON Ot J32.0 CHRONIC MAXILLARY SINUSITIS 12/14/2016 CRISTINA, DELLA L BACKSHOE PERSON Ot J32.2 CHRONIC ETHMOIDAL SINUSITIS 12/14/2016 CRISTINA, DELLA L BACKSHOE PERSON Ot 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 12/14/2016 CURLY LYONS, GLORIA White Ot R59.1 GENERALIZED ENLARGED LYMPH NODES 12/14/2016 CRISTINA DELLA L BACKSHOE PERSON Ot J32.0 CHRONIC MAXILLARY SINUSITIS 12/14/2016 CRISTINA, DELLA L BACKSHOE PERSON Ot J32.2 CHRONIC ETHMOIDAL SINUSITIS 12/14/2016 CRISTINA, DELLA L BACKSHOE PERSON Ot 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 05/07/2018 CURLY LYONS, GLORIA White Ot R59.1 GENERALIZED ENLARGED LYMPH NODES 05/07/2018 CRISTINA, DELLA L BACKSHOE PERSON Ot J32.0 CHRONIC MAXILLARY SINUSITIS 05/07/2018 CRISTINA, DELLA L BACKSHOE PERSON Ot J32.2 CHRONIC ETHMOIDAL SINUSITIS 05/07/2018 CRISTINA DELLA L BACKSHOE PERSON Ot 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 05/09/2018 YULIANA WHITFIELD DO Ot R10.11 RIGHT UPPER QUADRANT PAIN 05/09/2018 YULIANA WHITFIELD DO Ot R11.2 NAUSEA WITH VOMITING, UNSPECIFIED 05/10/2018 YULIANA WHITFIELD DO Ot R11.2 NAUSEA WITH VOMITING, UNSPECIFIED 05/15/2018 YULIANA WHITFIELD DO Ot Z01.818 ENCOUNTER FOR OTHER PREPROCEDURAL EXAMIN 05/16/2018 YULIANA WHITFIELD DO Ot Z01.818 ENCOUNTER FOR OTHER PREPROCEDURAL EXAMIN 05/17/2018 CURLY LYONS, GLORIA White Ot R59.1 GENERALIZED ENLARGED LYMPH NODES 05/17/2018 DELLA CRISTINA BACKSHOE PERSON Ot J32.0 CHRONIC MAXILLARY SINUSITIS 05/17/2018 CRISTINADELLA CACERES BACKSHOE PERSON Ot J32.2 CHRONIC ETHMOIDAL SINUSITIS 05/17/2018 CRISTINADELLA CACERES BACKSHOE PERSON Ot 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 05/17/2018 YULIANA WHITFIELD DO Ot R10.11 RIGHT UPPER QUADRANT PAIN 05/17/2018 YULIANA WHITFIELD DO Ot R11.2 NAUSEA WITH VOMITING, UNSPECIFIED 05/17/2018 YULIANA WHITFIELD DO Ot R11.2 NAUSEA WITH VOMITING, UNSPECIFIED 05/17/2018 YULIANA WHITFIELD DO Ot K21.9 GASTRO-ESOPHAGEAL REFLUX DISEASE WITHOUT 05/17/2018 YULIANA WHITFIELD DO Ot K81.1 CHRONIC CHOLECYSTITIS 05/17/2018 YULIANA WHITFIELD DO Ot K82.8 OTHER SPECIFIED DISEASES OF GALLBLADDER 05/17/2018 YULIANA WHITFIELD DO Ot Z11.2 ENCOUNTER FOR SCREENING FOR OTHER BACTER 05/17/2018 YULIANA WHITFIELD DO Ot Z87.891 PERSONAL HISTORY OF NICOTINE DEPENDENCE 05/21/2018 YULIANA WHITFIELD DO Ot K21.9 GASTRO-ESOPHAGEAL REFLUX DISEASE WITHOUT 05/21/2018 YULIANA WHITFIELD DO Ot K81.1 CHRONIC CHOLECYSTITIS 05/21/2018 YULIANA WHITFIELD DO Ot K82.8 OTHER SPECIFIED DISEASES OF GALLBLADDER 05/21/2018 YULIANA WHITFIELD DO Ot Z11.2 ENCOUNTER FOR SCREENING FOR OTHER BACTER 05/21/2018 YULIANA WHITFIELD DO Ot Z87.891 PERSONAL HISTORY OF NICOTINE DEPENDENCE 05/23/2018 YULIANA WHITFIELD DO Ot K21.9 GASTRO-ESOPHAGEAL REFLUX DISEASE WITHOUT 05/23/2018 YULIANA WHITFIELD DO Ot K81.1 CHRONIC CHOLECYSTITIS 05/23/2018 WHITFIELD YULIANA YI Ot K82.8 OTHER SPECIFIED DISEASES OF GALLBLADDER 05/23/2018 YULIANA WHITFIELD DO Ot Z11.2 ENCOUNTER FOR SCREENING FOR OTHER BACTER 05/23/2018 YULIANA WHITFIELD DO Ot Z87.891 PERSONAL HISTORY OF NICOTINE DEPENDENCE 05/24/2018 YULIANA WHITFIELD DO D Ot R10.11 RIGHT UPPER QUADRANT PAIN 05/24/2018 YULIANA WHITFIELD DO D Ot R11.2 NAUSEA WITH VOMITING, UNSPECIFIED 10/16/2018 WHITFIELD YULIANA YI D Ot R10.11 RIGHT UPPER QUADRANT PAIN 10/16/2018 WHITFIELD YULIANA YI D Ot R11.2 NAUSEA WITH VOMITING, UNSPECIFIED 11/28/2018 YULIANA WHITFIELD DO Ot R11.2 NAUSEA WITH VOMITING, UNSPECIFIED 11/28/2018 WHITFIELD YULIANA YI D Ot R11.2 NAUSEA WITH VOMITING, UNSPECIFIED 11/28/2018 WHITFIELD YULIANA YI D Ot R11.2 NAUSEA WITH VOMITING, UNSPECIFIED 01/03/2019 CURLY LYONS, GLORIA White Ot R59.1 GENERALIZED ENLARGED LYMPH NODES 01/03/2019 DELLA CRISTINA BACKSHOE PERSON Ot J32.0 CHRONIC MAXILLARY SINUSITIS 01/03/2019 DELLA CRISTINA BACKSHOE PERSON Ot J32.2 CHRONIC ETHMOIDAL SINUSITIS 01/03/2019 DELLA CRISTINA BACKSHOE PERSON Ot 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 Results Test [...] Automated erythrocyte mean corpuscular hemoglobin concentration measurement (mass/volume) 35 g/dL 32-36 Automated erythrocyte distribution width ratio 12.3 % 10.0- 14.5 Automated blood platelet count (count/volume) 290 10*3/uL [...] Blood monocytes automated count (number/volume) 0.6 10*3 0.0- 1.0 Automated eosinophil count 0.2 10*3/uL 0.0-0.3 Automated [...] [interpretation] in serum See Below See Below Urine beta human chorionic gonadotropin (hCG) measurement - 05/17/18 06:20 Urine beta human chorionic gonadotropin (hCG) measurement NEGATIVE NEGATIVE Complete blood count (CBC) with automated white blood cell (WBC) differential - 05/17/18 06:30 Blood leukocytes automated count (number/volume) 7.0 10*3/uL 4.3-11.0 Blood erythrocytes automated count (number/volume) 4.24 10*6/uL 4.35-5.85 Venous blood hemoglobin measurement (mass/volume) 13.7 g/dL 11.5-16.0 Blood hematocrit (volume fraction) 39 % 35-52 Automated erythrocyte mean corpuscular volume 92 [foz_us] 80-99 Automated erythrocyte mean corpuscular hemoglobin (mass per erythrocyte) 32 pg 25-34 Automated erythrocyte mean corpuscular hemoglobin concentration measurement (mass/volume) 35 g/dL 32-36 Automated erythrocyte distribution width ratio 12.4 % 10.0- 14.5 Automated blood platelet count (count/volume) 301 10*3/uL 130-400 Automated blood platelet mean volume measurement 8.3 [foz_us] 7.4-10.4 Automated blood neutrophils/100 leukocytes 59 % 42-75 Automated blood lymphocytes/100 leukocytes 29 % 12-44 Blood monocytes/100 leukocytes 10 % 0-12 Automated blood eosinophils/100 leukocytes 1 % 0-10 Automated blood basophils/100 leukocytes 0 % 0-10 Blood neutrophils automated count (number/volume) 4.1 10*3 1.8-7.8 Blood lymphocytes automated count (number/volume) 2.1 10*3 1.0-4.0 Blood monocytes automated count (number/volume) 0.7 10*3 0.0- 1.0 Automated eosinophil count 0.1 10*3/uL 0.0-0.3 Automated blood basophil count (count/volume) 0.0 10*3/uL 0.0-0.1 Methicillin resistant Staphylococcus aureus (MRSA) screening culture - 05/17/18 06:30 Methicillin resistant Staphylococcus aureus (MRSA) screening culture NEG NRG Encounters ACCT No. Visit Date/Time Discharge Status Pt. Type Provider Facility Loc./Unit Complaint [id number] 05/17/2018 06:12:00 05/17/2018 12:10:00 DIS Outpatient YULIANA WHITFIELD DO [facility] SDC BILIARY DYSKINESIA [id number] 05/15/2018 05:37:00 05/15/2018 12:33:00 DIS Outpatient YULIANA WHITFIELD DO [facility] PREOP BILIARY DYSKINESIA [id number] 05/09/2018 09:34:00 05/09/2018 23:59:59 CLS Outpatient ROSEANN YIYULIANA [facility] RAD NAUSEA,VOMITING [id number] 05/08/2018 08:10:00 05/08/2018 23:59:59 CLS Outpatient NILAM WHITFIELD DOSAADIA Erazo [facility] RAD NAUSEA,VOMITING [id number] 08/26/2016 13:11:00 08/26/2016 23:59:59 CLS Outpatient DELLA CRISTINA [facility] RAD CHRONIC SINUSITIS,FAILURE ON ANTIOBIOTICS [id number] 10/18/2015 03:46:00 10/18/2015 04:54:00 DIS Emergency YOBANI PINON MD [facility] ER MIGRANE [id number] 09/25/2015 10:25:00 09/25/2015 10:47:00 DIS Emergency ODALYS URIBE MD [facility] ER SUTURE REMOVAL [id number] 09/12/2015 13:43:00 09/12/2015 15:39:00 DIS Emergency JOSE GARCIA [facility] ER L KNEE LAC [id number] 06/08/2015 16:20:00 06/08/2015 23:59:59 CLS Outpatient CURLY LYONS, GLORIA White [facility] RAD CERVICAL RT LYPHADENOPAHTY [id number] 12/20/2013 20:01:00 12/20/2013 20:14:00 DIS Emergency YOBANI PINON MD [facility] ER L LEG LAC [id number] 07/29/2011 20:39:00 Document Registration
[2019-01-19] MEDS ORDERED: ONDANSETRON 4 MG/2 ML (SDV) Z0FRAN IVP ONE (05:30)
[2019-01-19] MEDS ORDERED: KETOROLAC 30 MG/ML VIAL IVP ONE (05:30)
[2019-01-19] MEDS ORDERED: LACTATED RINGERS 1,000 ML IV ONE (05:34)
--- NOTE | 2019-01-19 05:34 | ED Abdominal Pain ---
General Stated Complaint: RT LOWER SIDE PAIN Source of Information: Patient, Spouse Exam Limitations: No Limitations (SCOTTY HUTTON) History of Present Illness Date Seen by Provider: Jan 19, 2019 Time Seen by Provider: 05:20 Initial Comments The patient presents to the ER by private conveyance with her significant other and chief complaint she's having some right lower quadrant abdominal pain radiating towards her right flank and back started about 2-3 hours ago. She took 600 mg of ibuprofen but promptly vomited it up. She still having some nausea. She tried some Gas-X that did not help. She had a bowel movement that was normal formed yesterday. She has a history of cholecystectomy. She is not on control or have her tubes tied. She did have a fall yesterday but says it didn't hurt afterwards. (SCOTTY HUTTON) Allergies and Home Medications Allergies Coded Allergies: Brian Known Allergies (Verified Allergy, Unknown, 02/06/06) Home Medications Docusate Sodium 100 Mg Capsule, 100 MG PO DAILY Prescribed by: YULIANA WHITFIELD on 05/17/18 0846 Hydrocodone Bit/Acetaminophen 1 Tab Tab, 1-2 TAB PO Q6H PRN for PAIN-MODERATE Prescribed by: YULIANA WHITFIELD on 05/17/18 0846 Ranitidine HCl 150 Mg Tablet, 150 MG PO BID, (Reported) Patient Home Medication List Home Medication List Reviewed: Yes (SCOTTY HUTTON) Review of Systems Review of Systems Constitutional: No chills, No fever, No malaise EENTM: No Blurred Vision, No Double Vision Respiratory: Denies Cough, Denies Shortness of Air Cardiovascular: Denies Chest Pain, Denies Edema Gastrointestinal: See HPI; Denies Abdomen Distended; Abdominal Pain; Denies Constipated, Denies Diarrhea; Nausea, Vomiting Genitourinary: Denies Burning, Denies Discharge, Denies Hematuria Musculoskeletal: No back pain, No joint pain (SCOTTY HUTTON) Past Ygwbybl-Texbum-Djkucx Hx Patient Social History Alcohol Use: Denies Use Recreational Drug Use: No Smoking Status: Never a Smoker Former Smoker, Quit: May 15, 2017 Recent Foreign Travel: No Contact w/Someone Who Travel: No Recent Hopitalizations: No (SCOTTY HUTTON) Immunizations Up To Date Tetanus Booster (TDap): Less than 5yrs (SCOTTY HUTTON) Seasonal Allergies Seasonal Allergies: Yes (SCOTTY HUTTON) Past Medical History Adenoidectomy, Orthopedic, Tonsillectomy Headaches /Migraines Reproductive Disorders: No Gall Bladder Disease (SCOTTY HUTTON) Family Medical History No Pertinent Family Hx (SCOTTY HUTTON) Physical Exam Vital Signs Vital Signs - First Documented 01/19/19 05:23 Temp 97.3 Pulse 103 Resp 20 B/P (MAP) 129/86 (100) Pulse Ox 98 (ODALYS URIBE MD) Vital Signs Capillary Refill : (SCOTTY HUTTON) Height/Weight/BMI Height: 5'4.00" Weight: 180lbs. 0.0oz. 81.540640oe; 30.9 BMI Method:Stated General Appearance: WD/WN, mild distress HEENT: PERRL/EOMI, pharynx normal Neck: full range of motion, normal inspection Respiratory: no respiratory distress, no accessory muscle use Cardiovascular: normal peripheral pulses, regular rate, rhythm, tachycardia (110) Peripheral Pulses: 2+ Dorsalis Pedis (R), 2+ Left Dors-Pedis (L) Gastrointestinal: normal bowel sounds, rebound (over McBurney's point), tenderness (suprapubic and right lower quadrant.), other (right sided psoas sign positive) Extremities: normal range of motion, no pedal edema, normal capillary refill Back: normal inspection, no vertebral tenderness, CVA tenderness (R) Neurologic/Psychiatric: alert, normal mood/affect, oriented x 3 Skin: normal color, warm/dry (SCOTTY HUTTON) Progress/Results/Core Measures Results/Orders Lab Results Laboratory Tests Test 01/19/19 05:38 01/19/19 06:06 Range/Units White Blood Count 16.3 H 4.3-11.0 10^3/uL Red Blood Count 4.36 4.35-5.85 10^6/uL Hemoglobin 14.1 11.5-16.0 G/DL Hematocrit 40 35-52 % Mean Corpuscular Volume 92 80-99 FL Mean Corpuscular Hemoglobin 32 25-34 PG Mean Corpuscular Hemoglobin Concent 35 32-36 G/DL Red Cell Distribution Width 12.6 10.0-14.5 % Platelet Count 313 130-400 10^3/uL Mean Platelet Volume 8.5 7.4-10.4 FL Neutrophils (%) (Auto) 85 H 42-75 % Lymphocytes (%) (Auto) 8 L 12-44 % Monocytes (%) (Auto) 6 0-12 % Eosinophils (%) (Auto) 0 0-10 % Basophils (%) (Auto) 0 0-10 % Neutrophils # (Auto) 13.9 H 1.8-7.8 X 10^3 Lymphocytes # (Auto) 1.3 1.0-4.0 X 10^3 Monocytes # (Auto) 1.1 H 0.0-1.0 X 10^3 Eosinophils # (Auto) 0.1 0.0-0.3 10^3/uL Basophils # (Auto) 0.0 0.0-0.1 10^3/uL Neutrophils % (Manual) 83 % Lymphocytes % (Manual) 9 % Monocytes % (Manual) 7 % Band Neutrophils 1 % Blood Morphology Comment NORMAL Sodium Level 140 135-145 MMOL/L Potassium Level 3.6 3.6-5.0 MMOL/L Chloride Level 106 98-107 MMOL/L Carbon Dioxide Level 21 21-32 MMOL/L Anion Gap 13 5-14 MMOL/L Blood Urea Nitrogen 6 L 7-18 MG/DL Creatinine 0.76 0.60-1.30 MG/DL Estimat Glomerular Filtration Rate > 60 BUN/Creatinine Ratio 8 Glucose Level 104 70-105 MG/DL Calcium Level 9.3 8.5-10.1 MG/DL Corrected Calcium 8.5-10.1 MG/DL Total Bilirubin 0.5 0.1-1.0 MG/DL Aspartate Amino Transf (AST/SGOT) 25 5-34 U/L Alanine Aminotransferase (ALT/SGPT) 29 0-55 U/L Alkaline Phosphatase 59 40-136 U/L C-Reactive Protein High Sensitivity 0.18 0.00-0.50 MG/DL Total Protein 7.3 6.4-8.2 GM/DL Albumin 4.7 H 3.2-4.5 GM/DL Urine Color YELLOW Urine Clarity CLEAR Urine pH 5 5-9 Urine Specific [place] 1.020 1.016-1.022 Urine Protein 1+ H NEGATIVE Urine Glucose (UA) NEGATIVE NEGATIVE Urine Ketones 1+ H NEGATIVE Urine Nitrite NEGATIVE NEGATIVE Urine Bilirubin NEGATIVE NEGATIVE Urine Urobilinogen NORMAL NORMAL MG/DL Urine Leukocyte Esterase 1+ H NEGATIVE Urine RBC (Auto) 4+ H NEGATIVE Urine RBC 2-5 H /HPF Urine WBC RARE /HPF Urine Squamous Epithelial Cells 10-25 H /HPF Urine Crystals NONE /LPF Urine Bacteria TRACE /HPF Urine Casts NONE /LPF Urine Mucus LARGE H /LPF Urine Culture Indicated NO (ODALYS URIBE MD) My Orders Orders - ODALYS URIBE MD Fentanyl Injection (Sublimaze Injection (01/19/19 07:00) Ct Abd/Pelvis Wo(Kidney Stone) (01/19/19 06:57) (ODALYS URIBE MD) Medications Given in ED Current Medications Medications Dose Ordered Sig/Heidy Route Start Time Stop Time Status Last Admin Dose Admin Fentanyl Citrate 50 mcg ONCE ONCE IVP 01/19/19 07:00 01/19/19 08:10 DC 01/19/19 07:12 50 MCG Ketorolac Tromethamine 30 mg ONCE ONCE IVP 01/19/19 05:30 01/19/19 05:31 DC 01/19/19 05:44 30 MG Lactated Ringer's 1,000 ml @ 0 mls/hr Q0M ONCE IV 01/19/19 05:34 01/19/19 05:35 DC 01/19/19 05:44 1,000 MLS/HR Ondansetron HCl 4 mg ONCE ONCE IVP 01/19/19 05:30 01/19/19 05:31 DC 01/19/19 05:44 4 MG (ODALYS URIBE MD) Vital Signs/I&O 01/19/19 05:23 Temp 97.3 Pulse 103 Resp 20 B/P (MAP) 129/86 (100) Pulse Ox 98 (ODALYS URIBE MD) Progress Progress Note : Time: 05:33 Progress Note Blood work, IV fluids for her tachycardia, Toradol, Zofran and urinalysis. Bedside . Colitis/appendicitis versus kidney stone versus gynecologic infection, ovarian, etc. versus organic back pain. (SCOTTY HUTTON) Departure Communication (Admissions) [address] scan report has returned and is suggestive of an early appendicitis. The patient is tender to palpation over McBurney's point. I have discussed this with Dr. Nile Whitfield surgeon salesperson [employer] today and he will be dropping and shortly for evaluation. [address] Whitfield arrived. We reviewed the CT scan and it would certainly appear consistent with (ODALYS URIBE MD) Impression Primary Impression: acute appendicitis Disposition: ADMITTED INPATIENT Condition: Stable/Unchanged Admissions Decision to Admit Reason: Admit from ER (General) Decision to Admit/Date: Jan 19, 2019 Time/Decision to Admit Time: 08:28 (ODALYS URIBE MD) Departure-Patient Inst. Referrals: AVA CRISTINA DO (PCP/Family) Primary Care Physician SCOTTY HUTTON Jan 19, 2019 05:34 ODALYS URIBE MD Jan 19, 2019 08:29
[2019-01-19 05:47] LABS: BASOPHILS % (AUTO) 0 % (0-10); EOSINOPHILS # (AUTO) 0.1 10^3/uL (0.0-0.3); EOSINOPHILS % (AUTO) 0 % (0-10); HEMATOCRIT 40 % (35-52); HEMOGLOBIN 14.1 G/DL (11.5-16.0); LYMPHOCYTES # (AUTO) 1.3 X 10^3 (1.0-4.0); LYMPHOCYTES % (AUTO) 8 % (12-44); MEAN CORPUSCULAR HEMOGLOBIN 32 PG (25-34); MEAN CORPUSCULAR HGB CONC 35 G/DL (32-36); MEAN CORPUSCULAR VOLUME 92 FL (80-99); MEAN PLATELET VOLUME 8.5 FL (7.4-10.4); MONOCYTES # (AUTO) 1.1 X 10^3 (0.0-1.0); MONOCYTES % (AUTO) 6 % (0-12); NEUTROPHILS # (AUTO) 13.9 X 10^3 (1.8-7.8); NEUTROPHILS % (AUTO) 85 % (42-75); PLATELET COUNT 313 10^3/uL (130-400); RED CELL DISTRIBUTION WIDTH 12.6 % (10.0-14.5); WHITE BLOOD COUNT 16.3 10^3/uL (4.3-11.0)
[2019-01-19 06:07] LABS: ALANINE AMINOTRANSFERASE 29 U/L (0-55); ALBUMIN 4.7 GM/DL (3.2-4.5); ALKALINE PHOSPHATASE 59 U/L (40-136); BILIRUBIN,TOTAL 0.5 MG/DL (0.1-1.0); BUN/CREATININE RATIO 8; CALCIUM 9.3 MG/DL (8.5-10.1); CARBON DIOXIDE 21 MMOL/L (21-32); CHLORIDE 106 MMOL/L (98-107); CREATININE SERUM 0.76 MG/DL (0.60-1.30); GFR ESTIMATED > 60; GLUCOSE 104 MG/DL (70-105); POTASSIUM 3.6 MMOL/L (3.6-5.0); SODIUM 140 MMOL/L (135-145); TOTAL PROTEIN 7.3 GM/DL (6.4-8.2)
[2019-01-19 06:17] LABS: BAND NEUTROPHILS 1 %; LYMPHOCYTES % (MANUAL) 9 %; MONOCYTES % (MANUAL) 7 %; NEUTROPHILS % (MANUAL) 83 %; RBC MORPH NORMAL
[2019-01-19 06:25] LABS: BILIRUBIN,URINE NEGATIVE (NEGATIVE); CLARITY,URINE CLEAR; COLOR,URINE YELLOW; GLUCOSE, URINE (UA) NEGATIVE (NEGATIVE); KETONES,URINE 1+ (NEGATIVE); LEUKOCYTE ESTERASE ,URINE 1+ (NEGATIVE); NITRITE,URINE NEGATIVE (NEGATIVE); PH,URINE 5 (5-9); PROTEIN,URINE 1+ (NEGATIVE); UROBILINOGEN,URINE NORMAL (NORMAL)
[2019-01-19 06:41] LABS: BACTERIA,URINE TRACE /HPF; WBC,URINE RARE /HPF
--- NOTE | 2019-01-19 06:59 | NUR ---
REPORT GIVEN TO LACY BONE
[2019-01-19] MEDS ORDERED: fentaNYL INJECTION 100 MCG/2 ML AMP IVP ONE ×3 (07:00→10:30)
--- NOTE | 2019-01-19 07:04 | NUR ---
DR URIBE INTO SEE PT.
--- NOTE | 2019-01-19 08:12 | Diagnostic Imaging Report ---
PROCEDURE: CT urinary tract, rule out kidney stone. TECHNIQUE: Multiple contiguous axial images were obtained through the abdomen and pelvis without the use of intravenous contrast. Auto Exposure Controls were utilized during the CT exam to meet ALARA standards for radiation dose reduction. INDICATION: Right lower quadrant pain. FINDINGS: The gallbladder is absent. The liver and bile ducts are normal. The spleen, pancreas and adrenals are normal. The kidneys, ureters and bladder are normal. The appendix is prominent at 9 mm. There is minimal if any periappendiceal edema. The colon and small bowel are normal. There is no free air or free fluid. There is no adenopathy. There is no pelvic mass. There is no acute bony abnormality. IMPRESSION: The appendix is prominent but no periappendiceal edema is seen at this time. The changes are suspicious for uncomplicated acute appendicitis. Dictated by: Dictated on workstation # [id number]
--- NOTE | 2019-01-19 08:24 | NUR ---
DR WHITFIELD HERE TO SEE PT. .
--- NOTE | 2019-01-19 08:35 | NUR ---
[employer] POLY NOTIFIED OF DR WHITFIELD WANTING TO TAKE PT TO OR FOR APPY.
[2019-01-19] MEDS ORDERED: ceFAZolin 2 GM IV Premixed 50 ML IV ONE (09:15)
[2019-01-19] MEDS ORDERED: metroNIDAZOLE 500MG/100ML IVPB IV ONE (09:15)
--- NOTE | 2019-01-19 09:34 | History & Physical-Surgical ---
History of Present Illness History of Present Illness Reason for visit/HPI seen and evaluated in ED cc: rlq abdominal pain Patient is a 38 year old female who began having rlq abdominal pain at about 3 am. Pain sharp and no radiation. rated pain about 7-8/10. Having some nausea and emesis. Pain persisted so went to ed for further curt luation. Pain meds have made pain somewhat better. Movement and pushing on it makes pain worse. reviewed ct scan which has prominent appendix suggestive of early appendicitis. WBC 16 K. Denies fever sweats chills shortness of breath or chest pain. Date of Admission T Date Seen by a Provider: Jan 19, 2019 Time Seen by a Provider: 08:20 I consulted on this patient on 01/19/19 09:28 Attending Physician Admitting Physician Gurdeep Álvarez DO Consult Allergies and Home Medications Allergies Coded Allergies: NKANo Known Allergies (Verified Allergy, Unknown, 02/06/06) Home Medications Docusate Sodium 100 Mg Capsule, 100 MG PO DAILY Prescribed by: YULIANA WHITFIELD on 05/17/18 0846 Hydrocodone Bit/Acetaminophen 1 Tab Tab, 1-2 TAB PO Q6H PRN for PAIN-MODERATE Prescribed by: YULIANA WHITFIELD on 05/17/18 0846 Ranitidine HCl 150 Mg Tablet, 150 MG PO BID, (Reported) Patient Home Medication List Home Medication List Reviewed: Yes Past Bbdenme-Oahoff-Ysfwns Hx Patient Social History Alcohol Use: Denies Use Recreational Drug Use: No Smoking Status: Never a Smoker Former Smoker, Quit: May 15, 2017 2nd Hand Smoke Exposure: No Recent Foreign Travel: No Contact w/Someone Who Travel: No Recent Infectious Disease Expo: No Recent Hopitalizations: No Immunizations Up To Date Tetanus Booster (TDap): Less than 5yrs Seasonal Allergies Seasonal Allergies: Yes Surgeries History of Surgeries: Yes (R wrist, sinus sx, D&C) Surgeries: Adenoidectomy, Gallbladder, Orthopedic, Tonsillectomy Respiratory History of Respiratory Disorde: No Cardiovascular History of Cardiac Disorders: No Neurological History of Neurological Disord: Yes Neurological Disorders: Headaches /Migraines Reproductive System : No Hx Reproductive Disorders: No Genitourinary History of Genitourinary Disor: No Gastrointestinal History of Gastrointestinal Di: No Gastrointestinal Disorders: Gall Bladder Disease Musculoskeletal History of Musculoskeletal Dis: No Endocrine History of Endocrine Disorders: No HEENT History of HEENT Disorders: No Cancer History of Cancer: No Psychosocial History of Psychiatric Problem: No Integumentary History of Skin or Integumenta: No Blood Transfusions History of Blood Disorders: No Family Medical History Significant Family History: No Pertinent Family Hx Review of Systems Constitutional: no symptoms reported EENTM: no symptoms reported Respiratory: no symptoms reported Cardiovascular: no symptoms reported Gastrointestinal: see HPI Genitourinary: no symptoms reported Musculoskeletal: no symptoms reported Skin: no symptoms reported Psychiatric/Neurological: No Symptoms Reported Physical Exam Vital Signs Vital Signs - First Documented 01/19/19 05:23 Temp 97.3 Pulse 103 Resp 20 B/P (MAP) 129/86 (100) Pulse Ox 98 Capillary Refill : Less Than 3 Seconds Height, Weight, BMI Height: 5'4.00" Weight: 180lbs. 0.0oz. [id number]; 30.9 BMI Method:Stated General Appearance: No Apparent Distress HEENT: PERRL/EOMI, Normal ENT Inspection Neck: Full Range of Motion, Non Tender Respiratory: Chest Non Tender, No Accessory Muscle Use, No Respiratory Distress Cardiovascular: Regular Rate, Rhythm Gastrointestinal: Soft, Tenderness (rlq) Rectal: Deferred Back: No CVA Tenderness Extremity: Non Tender Neurologic/Psychiatric: Alert, Oriented x3, No Motor/Sensory Deficits, Normal Mood/Affect, legal word processor II-XII Norm as Tested Skin: Normal Color, Warm/Dry Lymphatic: No Adenopathy Data Review Labs Laboratory Tests 01/19/19 05:38: White Blood Count 16.3H, Red Blood Count 4.36, Hemoglobin 14.1, Hematocrit 40, Mean Corpuscular Volume 92, Mean Corpuscular Hemoglobin 32, Mean Corpuscular Hemoglobin Concent 35, Red Cell Distribution Width 12.6, Platelet Count 313, Mean Platelet Volume 8.5, Neutrophils (%) (Auto) 85H, Lymphocytes (%) (Auto) 8L, Monocytes (%) (Auto) 6, Eosinophils (%) (Auto) 0, Basophils (%) (Auto) 0, Neutrophils # (Auto) 13.9H, Lymphocytes # (Auto) 1.3, Monocytes # (Auto) 1.1H, Eosinophils # (Auto) 0.1, Basophils # (Auto) 0.0, Neutrophils % (Manual) 83, Lymphocytes % (Manual) 9, Monocytes % (Manual) 7, Band Neutrophils 1, Blood Morphology Comment NORMAL, Sodium Level 140, Potassium Level 3.6, Chloride Level 106, Carbon Dioxide Level 21, Anion Gap 13, Blood Urea Nitrogen 6L, Creatinine 0.76, Estimat Glomerular Filtration Rate > 60, BUN/Creatinine Ratio 8, Glucose Level 104, Calcium Level 9.3, Corrected Calcium , Total Bilirubin 0.5, Aspartate Amino Transf (AST/SGOT) 25, Alanine Aminotransferase (ALT/SGPT) 29, Alkaline Phosphatase 59, C-Reactive Protein High Sensitivity 0.18, Total Protein 7.3, Albumin 4.7H 01/19/19 06:06: Urine Color YELLOW, Urine Clarity CLEAR, Urine pH 5, Urine Specific [place] 1.020, Urine Protein 1+H, Urine Glucose (UA) NEGATIVE, Urine Ketones 1+H, Urine Nitrite NEGATIVE, Urine Bilirubin NEGATIVE, Urine Urobilinogen NORMAL, Urine Leukocyte Esterase 1+H, Urine RBC (Auto) 4+H, Urine RBC 2-5H, Urine WBC RARE, Urine Squamous Epithelial Cells 10-25H, Urine Crystals NONE, Urine Bacteria TRACE, Urine Casts NONE, Urine Mucus LARGEH, Urine Culture Indicated NO Assessment/Plan Assessment/Plan Admission Diagonsis rlq abd pain appendicitis discussed risks and benefit of laparoscopic appendectomy all other indicated procedures patient understands risks and benefits and wishes to proceed. to or for surgery npo iv hydration preop abx ordered consent. Admission Status: Observation Assessment/Plan rlq abd pain appendicitis discussed risks and benefit of laparoscopic appendectomy all other indicated procedures patient understands risks and benefits and wishes to proceed. to or for surgery npo iv hydration preop abx ordered consent. YULIANA WHITFIELD DO Jan 19, 2019 09:34
[2019-01-19] MEDS ORDERED: LACTATED RINGERS 1,000 ML IV PRN (09:42)
[2019-01-19] MEDS ORDERED: MEPERIDINE (DEMEROL) INJ 50 MG/ML IVP ONE (09:45)
[2019-01-19] MEDS ORDERED: morphine INJ 10 MG/ML 1ML (SYR OR VIAL) IVP ONE (09:45)
[2019-01-19] MEDS ORDERED: ONDANSETRON 4 MG/2 ML (SDV) Z0FRAN IVP PRN (09:45)
[2019-01-19] MEDS ORDERED: BUP/EPI 0.5% 1:200,000 (SENSORCAINE) 30 ML VIAL ONE (09:53)
[2019-01-19] MEDS: LACTATED RINGERS 1,000 ML IV SCH ×2 (09:55→17:49)
[2019-01-19] MEDS ORDERED: MIDAZOLAM 2 MG/2 ML (VERSED) VIAL ONE (10:53)
[2019-01-19] MEDS ORDERED: fentaNYL INJECTION 100 MCG/2 ML AMP ONE (10:53)
[2019-01-19] MEDS ORDERED: SEVOFLURANE (ULTANE) 15 ML INHAL SOLN ONE (12:02)
[2019-01-19] MEDS ORDERED: LIDOCAINE PF 2% 5 ML (XYLOCAINE) VIAL ONE (12:02)
[2019-01-19] MEDS ORDERED: SUCCINYLCHOLINE INJ 100 MG/5 ML SYR ONE (12:02)
[2019-01-19] MEDS ORDERED: ONDANSETRON 4 MG/2 ML (SDV) Z0FRAN ONE (12:02)
[2019-01-19] MEDS ORDERED: proPOfol 200 MG/20 ML (DIPRIVAN) VIAL IV ONE (12:02)
[2019-01-19] MEDS ORDERED: ROCURONIUM 10 MG/ML 5 ML SYRINGE IV ONE (12:02)
--- NOTE | 2019-01-19 12:09 | Progress Note-Post Operative ---
Post-Operative Progess Note Surgeon (s)/Spring Coiling Machine Setter (s) Surgeon YULIANA WHITFIELD DO Spring Coiling Machine Setter: na Pre-Operative Diagnosis rlq abd pain appendicitis Post-Operative Diagnosis same Procedure & Operative Findings Date of Procedure 01/19/19 Procedure Performed/Findings laparoscopic appendectomy Anesthesia Type gen Estimated Blood Loss Estimated blood loss (mL): min Specimens/Packing Specimens Removed appendix YULIANA WHITFIELD DO Jan 19, 2019 12:09
[2019-01-19] MEDS ORDERED: ACHD5005 PO (12:10)
[2019-01-19] MEDS ORDERED: DOCU-143 PO (12:10)
--- NOTE | 2019-01-19 12:11 | Discharge Inst-Simple/Standard ---
Discharge Inst-Standard Discharge Medications New, Converted or Re-Newed RX: RX on Chart Patient Instructions/Follow Up Plan of Care/Instructions/FU: 2 weeks Hatch Activity as Tolerated: No Discharge Diet: Regular Diet Other Inst to Patient Follow up Appt: Make appointment for 2 week. Instructions: No lifting greater than 10 pounds. No strenuous activity. May shower in 24 hours, no tub bath or soaking. Use incentive spirometer at home as directed. No Smoking Skin/Wound Care: You have special glue over incisions it will fall off on its own. Symptoms to Report: Appetite Changes, Extremity Discoloration, Numbness/Tingling, Swelling Increased, Bleeding Excessive, Eyesight Changes, Pain Increased, Urine Color Change, Constipation(Persistent), Fever over 101 degree F, Pain/Pressure in chest, Urinating Difficulty, Cough Up/Vomit Blood, Heart Beat Irreg/Pounding, Pain/Pressure in jaw, Vaginal Bleeding Increase, Cramps in feet or legs, Lightheadedness, Pain/Pressure in shoulder, Diarrhea(Persistent), Memory Changes Suddenly, Questions/Concerns, Weight gain consecutive days, Dizziness/Fainting, Nausea/Vomiting, Shortness of Breath, Weight gain over 2 pounds If questions or concerns contact your physician Or seek help at emergency department. YULIANA HATCH DO Jan 19, 2019 12:11
[2019-01-19] MEDS ORDERED: morphine INJ 10 MG/ML 1ML (SYR OR VIAL) ONE (12:13)
[2019-01-19] MEDS ORDERED: HYDROcodone/APAP 5 MG/325 MG (LORTAB) TAB PO PRN (12:15)
--- NOTE | 2019-01-19 13:28 | NUR ---
patient to floor at this time.
--- NOTE | 2019-01-19 16:23 | OPERATIVE REPORT ---
DATE OF SERVICE: 01/19/2019 PREOPERATIVE DIAGNOSES: Right lower quadrant abdominal pain, appendicitis. POSTOPERATIVE DIAGNOSES: Right lower quadrant abdominal pain, appendicitis. PROCEDURE: Laparoscopic appendectomy. SURGEON: Yuliana Hatch DO ANESTHESIA: General. ESTIMATED BLOOD LOSS: Minimal. COMPLICATIONS: None. INDICATIONS: The patient is a 38-year-old female who began having right lower quadrant abdominal pain earlier this morning and continued to worsen. She had CT scan suggestive of acute appendicitis. White count 16,000. She understands risks and benefits of procedure and wished to proceed with procedure. Consent was signed on the chart. DESCRIPTION OF PROCEDURE: The patient was taken to the operating suite. She was prepped and draped in sterile fashion. Timeout was performed. Jessie technique was used to enter just above the abdomen. An 0 Vicryl was placed in a [id number] fashion for closure at the end at the 12 mm fascial defect. A balloon trocar was inserted in the abdomen. Pneumoperitoneum was achieved. Under direct visualization of the laparoscope, a 5 mm trocar was placed in the suprapubic region and a 5 mm trocar was placed in left lower quadrant. Appendix was inflamed and dilated. The base had normal appearance. The appendix was grasped and elevated. [place] was used to dissect around the base of the appendix. The Endo-MARY ANNE 2.5 stapler was fired across the base of the appendix and the 2.0 reload was then fired across the mesoappendix. Hemostasis was achieved. Staple lines were intact. The appendix was placed in an Endobag and removed through 12 mm trocar site. The 0 Vicryl that was placed earlier was then closed, closing the 12 mm fascial defect. The abdomen was then desufflated. The trocars were removed. Skin was then closed using 4-0 Monocryl in subcuticular fashion. The abdomen was then washed and dried and Skin Affix was placed over the incisions. The patient tolerated procedure well without any complications. She was taken to recovery room in stable condition. Job ID: [id number] DocumentID: [id number] Dictated Date: 01/19/2019 12:14:13 Car Chaser Date: 01/19/2019 16:22:47 Dictated By: YULIANA HATCH DO
--- NOTE | 2019-01-20 09:04 | Anesthesia-General Post-Op ---
General Patient Condition Mental Status/LOC: Same as Preop Cardiovascular: Satisfactory Nausea/Vomiting: Absent Respiratory: Satisfactory Pain: Controlled Complications: Absent Post Op Complications Complications None Follow Up Care/Instructions Patient Instructions None needed. Anesthesia/Patient Condition Patient Condition Patient is doing well, no complaints, stable vital signs, no apparent adverse anesthesia problems. No complications reported per nursing. SOLOMON SETHI CRNA Jan 20, 2019 09:03
== END 2019-01-19 17:54 | disposition home or self-care (01) ==
LOC: EDUNIT# 05:19 → ER 05:21 → SDC 09:29 → 4TH 13:29 → SDC 17:54
PROVIDERS: ATTEND Surgery
DX: K35.80 Unspecified acute appendicitis (principal); Z11.2 Encounter for screening for other bacterial diseases; G43.909 Migraine, unspecified, not intractable, without status migrainosus; K21.9 Gastro-esophageal reflux disease without esophagitis; Z90.49 Acquired absence of other specified parts of digestive tract; Z87.891 Personal history of nicotine dependence
CPT/HCPCS: 36415; 74176; 80053; 81000; 84703; 85007; 85027; 86141; 87081; 94664; 96361; 96374; 96375

== ENCOUNTER → 2021-03-04 | Outpatient (CLI) | payer OTHER ==
[~2021-03-04] MED LIST changes: +BUTA-235; -BUTA1TAB9; +RANI-613 PO; -RANI150T46 PO; -TRAM50TA2 PO; +TRM50T PO
--- NOTE | 2021-03-04 10:46 | Diagnostic Imaging Report ---
INDICATION: Cough and shortness of breath. TIME OF EXAM: 10:41 AM Correlation is made prior chest 08/26/2016. FINDINGS: The heart size is normal. The pulmonary vascularity is unremarkable. The lungs are clear. No infiltrate, effusion or pneumothorax is detected. IMPRESSION: No acute cardiopulmonary process is detected. Dictated by: Dictated on workstation # [id number]
== END ==
LOC: RAD 10:16
PROVIDERS: ATTEND Nurse Practitioner Family
DX: R05 Cough (principal); R06.02 Shortness of breath
CPT/HCPCS: 71046